=== PATIENT | female | born 1970 | race Caucasian/White ===

== ENCOUNTER 2019-03-19 12:09 | Emergency (ER) | payer OTHER, MEDICAID, SELFPAY ==
[2019-03-19 12:37] VITALS: BP 129/80; PULSE 67; RESP 16; TEMP 36.4; O2SAT 100
[2019-03-19 14:44] LABS: Add Manual Diff / Slide Review NO; Basophils Absolute Auto 0 /uL (0-100); Basophils Percent Auto 0.7 % (0-2); Eosinophils Absolute Auto 0 /uL (0-450); Eosinophils Percent Auto 0.8 % (2-4); Hematocrit 27.8 % (36-46); Hemoglobin 8.6 g/dL (12.0-16.0); Lymphocytes Absolute Auto 1600 /uL (1100-4500); Lymphocytes Percent Auto 26.1 % (25-40); Mean Corpuscular HGB Conc 30.7 % (30-36); Mean Corpuscular Hemoglobin 21.4 PG (26-34); Mean Corpuscular Volume 69.6 fL (80-100); Monocytes Absolute Auto 700 /uL (0-900); Monocytes Percent Auto 11.1 % (3-14); Neutrophils Absolute Auto 3700 /uL (1500-7000); Neutrophils Percent Auto 61.3 % (50-75); Platelet Count 287 X10^3/uL (150-400); Red Cell Distribution Width 17.9 % (11.6-14.8)
[2019-03-19 14:56] LABS: Alanine Aminotransferase 41 IU/L (9-52); Albumin 4.2 g/dL (3.5-5.0); Albumin Globulin Ratio 1.1 (1.0-2.8); Alkaline Phosphatase 127 U/L (38-126); Aspartate Aminotransferase 33 IU/L (14-36); BUN Creatinine Ratio 23.3 (6-22); Bilirubin Total 0.3 mg/dL (0.2-1.3); Blood Urea Nitrogen 14 mg/dL (7-17); Calcium 9.1 mg/dL (8.4-10.2); Carbon Dioxide 27 mmol/L (22-32); Chloride 101 mmol/L (98-107); Estimated Glomerular Filt Rate > 60.0 mL/min (>60); Globulin 3.8 g/dL (1.7-4.1); Glucose 102 mg/dL (70-100); HEMOLYSIS < 15 (0-50); Lipase 28 U/L (23-300); Potassium 3.7 mmol/L (3.4-5.1); Sodium 136 mmol/L (137-145)
[2019-03-19] MEDS: SODIUM CHLORIDE 0.9% 1,000 ML 1000 ML IV (15:00)
[2019-03-19] MEDS: ONDANSETRON 4 MG/2 ML INJ IV ×2 (15:00→16:00)
[2019-03-19 15:20] LABS: Amylase 58 U/L (30-110)
[2019-03-19 15:29] LABS: Influenza A and B by PCR Rapid Negative (Negative)
[2019-03-19 15:55] LABS: Hypochromasia 2+; Microcytosis 2+
--- NOTE | 2019-03-19 17:45 | ED_ITS ---
HPI - Nausea/Vomiting/Diarrhea <JUN Hamilton - Last Filed: 03/19/19 17:54> General Chief complaint: Nausea/Vomiting/Diarrhea Stated complaint: nausea & vomiting/fever x4 days Time Seen by Provider: 03/19/19 14:23 Source: patient Mode of arrival: ambulatory Limitations: no limitations History of Present Illness HPI Narrative: The patient is a 48-year-old female former smoker with history of GI upset who presents with a chief complaint of nausea vomiting and subjective fevers for the past 3 days. 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 She states that she feels like she has the flu. She denies any abdominal pain. She denies any diarrhea. She denies any constipation. She states that she has not taken anything to feel better at home. She complains of slight fever and chills, has not taken her temperature. Related Data Previous Rx's Medication Instructions Recorded ondansetron 4 mg PO Q6H PRN #20 tab 03/19/19 Allergies Allergy/AdvReac Type Severity Reaction Status Date / Time No Known Drug Allergies Allergy Verified 03/19/19 14:47 Review of Systems <JUN Hamilton - Last Filed: 03/19/19 17:54> Review of Systems Narrative: GENERAL: Denies chills, fatigue, malaise, fever, sweats. HEENT: Denies sinus pain, ear pain, sore throat, difficulty swallowing, dizziness. RESPIRATORY: Denies dyspnea, cough, wheezing, hemoptysis, sputum. CARDIOVASCULAR: Denies chest pain, palpitations, orthopnea, edema, GASTROINTESTINAL: See HPI : Denies dysuria, frequency, incontinence, hematuria, urinary retention. MUSCULOSKELETAL: denies weakness, joint pain, or bony pain SKIN: Denies rash, skin lesions, or other NEUROLOGIC: Denies weakness, headache, numbness, change in speech, confusion, seizures, incoordination. PSYCHIATRIC: No concerning psychosocial issues. 12 point review of systems is negative except for those stated above PFSH <JUN Hamilton - Last Filed: 03/19/19 17:54> Social History Smoking Status: Former smoker Social History Smoking Status: Former smoker Exam <JUN Hamilton - Last Filed: 03/19/19 17:54> Narrative Exam Narrative: GENERAL: This is a well-nourished, well-developed patient, no acute distress HEAD: Atraumatic. Normocephalic. No temporal or scalp tenderness. EYES: Pupils equal round and reactive. Extraocular motions intact. No scleral icterus. No injection or drainage. ENT: Nose without bleeding, purulent drainage or septal hematoma. Throat without erythema, tonsillar hypertrophy or exudate. Uvula midline. Airway patent. NECK: Trachea midline. No JVD or lymphadenopathy. Supple, nontender, no meningea l signs. CARDIOVASCULAR: Regular rate and rhythm without murmurs, gallops, or rubs. RESPIRATORY: Clear to auscultation. Breath sounds equal bilaterally. No wheezes, rales, or rhonchi. No cough. No increased respiratory effort. No accessory muscle use. GASTROINTESTINAL: Abdomen soft, non-tender, nondistended. No hepato- splenomegaly, or palpable masses. No guarding. Active bowel sounds all 4 qu adrants. EXTREMITIES: No clubbing, cyanosis, or edema. No joint tenderness, effusion, or edema noted. BACK: Nontender without deformity or crepitance. No flank tenderness. NEURO: AOx3. SKIN: No rash or erythema. Initial Vital Signs Initial Vital Signs: Vital Signs Temperature 97.5 F L 03/19/19 12:37 Pulse Rate 67 03/19/19 12:37 Respiratory Rate 16 03/19/19 12:37 Blood Pressure 129/80 03/19/19 12:37 Pulse Oximetry 100 03/19/19 12:37 <Kelsey Sheldon DO - Last Filed: 03/19/19 19:27> Initial Vital Signs Initial Vital Signs: Vital Signs Temperature 97.5 F L 03/19/19 12:37 Pulse Rate 67 03/19/19 12:37 Respiratory Rate 16 03/19/19 12:37 Blood Pressure 129/80 03/19/19 12:37 Pulse Oximetry 100 03/19/19 12:37 Course <JUN Hamilton - Last Filed: 03/19/19 17:54> Orders Ordered: ED Orders 03/19/19 14:35 Complete Blood Count AUTO DIFF Stat Comprehensive Metabolic Panel Stat Lipase Stat 03/19/19 14:58 Influenza A and B by PCR Rapid Stat 03/19/19 15:02 Amylase Stat Discontinued Medications Sodium Chloride (Normal Saline 0.9%) 1,000 mls @ 1,000 mls/hr IV BOLUS ONE Stop: 03/19/19 15:44 Last Infusion: 03/19/19 17:30 Dose: 0 mls/hr Documented by: Admin: 03/19/19 15:00 Dose: 1,000 mls/hr Documented by: TYE Ondansetron HCl (Zofran) 4 mg IV NOW ONE Stop: 03/19/19 14:46 Last Admin: 03/19/19 15:00 Dose: 4 mg Documented by: TYE Ondansetron HCl (Zofran) 4 mg IV NOW ONE Stop: 03/19/19 15:41 Last Admin: 03/19/19 16:00 Dose: 4 mg Documented by: TYE Vital Signs Vital signs: Vital Signs - 8 hr 03/19/19 12:37 03/19/19 17:59 Temperature 97.5 F L Pulse Rate 67 88 Respiratory Rate 16 20 Blood Pressure 129/80 119/74 Pulse Oximetry 100 <Kelsey Sheldon, - Last Filed: 03/19/19 19:27> Orders Ordered: ED Orders 03/19/19 14:35 Complete Blood Count AUTO DIFF Stat Comprehensive Metabolic Panel Stat Lipase Stat 03/19/19 14:58 Influenza A and B by PCR Rapid Stat 03/19/19 15:02 Amylase Stat Discontinued Medications Sodium Chloride (Normal Saline 0.9%) 1,000 mls @ 1,000 mls/hr IV BOLUS ONE Stop: 03/19/19 15:44 Last Infusion: 03/19/19 17:30 Dose: 0 mls/hr Documented by: Admin: 03/19/19 15:00 Dose: 1,000 mls/hr Documented by: TYE Ondansetron HCl (Zofran) 4 mg IV NOW ONE Stop: 03/19/19 14:46 Last Admin: 03/19/19 15:00 Dose: 4 mg Documented by: TYE Ondansetron HCl (Zofran) 4 mg IV NOW ONE Stop: 03/19/19 15:41 Last Admin: 03/19/19 16:00 Dose: 4 mg Documented by: TYE Vital Signs Vital signs: Vital Signs - 8 hr 03/19/19 12:37 03/19/19 17:59 Temperature 97.5 F L Pulse Rate 67 88 Respiratory Rate 16 20 Blood Pressure 129/80 119/74 Pulse Oximetry 100 MDM - Nausea/Vomiting/Diarrhea <ASHLEY Hamilton- - Last Filed: 03/19/19 17:54> Lab Data Result diagrams: 03/19/19 14:35 03/19/19 14:35 Labs: Lab Results 03/19/19 03/19/19 03/19/19 Range/Units 14:35 14:35 14:58 WBC 6.0 (4.5-11.0) X10^3/uL RBC 4.00 (4.0-5.2) X10^6/uL Hgb 8.6 L (12.0-16.0) g/dL Hct 27.8 L (36-46) % MCV 69.6 L (80-100) fL MCH 21.4 L (26-34) PG MCHC 30.7 (30-36) % RDW 17.9 H (11.6-14.8) % Plt Count 287 (150-400) X10^3/uL Neut % (Auto) 61.3 (50-75) % Lymph % (Auto) 26.1 (25-40) % [place] % (Auto) 11.1 (3-14) % Eos % (Auto) 0.8 L (2-4) % Baso % (Auto) 0.7 (0-2) % Neut # (Auto) 3700 (9262-6853) /uL Lymph # (Auto) 1600 (4266-1571) /uL [place] # (Auto) 700 (0-900) /uL Eos # (Auto) 0 (0-450) /uL Baso # (Auto) 0 (0-100) /uL RBC Morphology See below Hypochromasia 2+ H Microcytosis 2+ H Sodium 136 L (137-145) mmol/L Potassium 3.7 (3.4-5.1) mmol/L Chloride 101 (98-107) mmol/L Carbon Dioxide 27 (22-32) mmol/L BUN 14 (7-17) mg/dL Creatinine 0.60 (0.52-1.04) mg/dL Estimated GFR > 60.0 (>60) mL/min BUN/Creatinine Ratio 23.3 H (6-22) Glucose 102 H (70-100) mg/dL Calcium 9.1 (8.4-10.2) mg/dL Total Bilirubin 0.3 (0.2-1.3) mg/dL AST 33 (14-36) IU/L ALT 41 (9-52) IU/L Alkaline Phosphatase 127 H (38-126) U/L Total Protein 8.0 (6.3-8.2) g/dL Albumin 4.2 (3.5-5.0) g/dL Globulin 3.8 (1.7-4.1) g/dL Albumin/Globulin Ratio 1.1 (1.0-2.8) Amylase (30-110) U/L Lipase 28 (23-300) U/L Influenza A & B (PCR) Negative (Negative) 03/19/19 Range/Units 15:02 WBC (4.5-11.0) X10^3/uL RBC (4.0-5.2) X10^6/uL Hgb (12.0-16.0) g/dL Hct (36-46) % MCV (80-100) fL MCH (26-34) PG MCHC (30-36) % RDW (11.6-14.8) % Plt Count (150-400) X10^3/uL Neut % (Auto) (50-75) % Lymph % (Auto) (25-40) % [place] % (Auto) (3-14) % Eos % (Auto) (2-4) % Baso % (Auto) (0-2) % Neut # (Auto) (4492-3642) /uL Lymph # (Auto) (5176-5734) /uL [place] # (Auto) (0-900) /uL Eos # (Auto) (0-450) /uL Baso # (Auto) (0-100) /uL RBC Morphology Hypochromasia Microcytosis Sodium (137-145) mmol/L Potassium (3.4-5.1) mmol/L Chloride (98-107) mmol/L Carbon Dioxide (22-32) mmol/L BUN (7-17) mg/dL Creatinine (0.52-1.04) mg/dL Estimated GFR (>60) mL/min BUN/Creatinine Ratio (6-22) Glucose (70-100) mg/dL Calcium (8.4-10.2) mg/dL Total Bilirubin (0.2-1.3) mg/dL AST (14-36) IU/L ALT (9-52) IU/L Alkaline Phosphatase (38-126) U/L Total Protein (6.3-8.2) g/dL Albumin (3.5-5.0) g/dL Globulin (1.7-4.1) g/dL Albumin/Globulin Ratio (1.0-2.8) Amylase 58 (30-110) U/L Lipase (23-300) U/L Influenza A & B (PCR) (Negative) Point of Care Testing Test Results Negative Urine Dip Bedside Urine Glucose Negative Bedside Urine Bilirubin - Negative Bedside Urine Ketone - Negative Urine Specific [place] 1.015 Bedside Urine Occult Blood - Negative Bedside Urine pH 6.0 Bedside Urine Protein - Negative Bedside Urine Urobilinogen - Negative Bedside Urine Nitrite - Negative Bedside Urine Leukocytes - Negative Esterase MDM Narrative Medical decision making narrative: The patient is a 48-year-old female who presents with a chief complaint of nausea and vomiting. Her lab work is grossly within normal limits for her given her lab work in August. Her urine shows no signs of infection or . She tolerated p.o. trial after receiving a L of IV fluid and Zofran. I discussed at length the importance of following up with her PCP as well as come back to the ER for any acute concerns such as inability keep down fluids. Patient has no questions or concerns upon discharge. States she will come back if she needs to and follow up with PCP. S he was given a prescription of Zofran. Of note the patient did not vomit throughout her stay in the emergency department. <Kelsey Sheldon, DO - Last Filed: 03/19/19 19:27> Lab Data Labs: Lab Results 03/19/19 03/19/19 03/19/19 Range/Units 14:35 14:35 14:58 WBC 6.0 (4.5-11.0) X10^3/uL RBC 4.00 (4.0-5.2) X10^6/uL Hgb 8.6 L (12.0-16.0) g/dL Hct 27.8 L (36-46) % MCV 69.6 L (80-100) fL MCH 21.4 L (26-34) PG MCHC 30.7 (30-36) % RDW 17.9 H (11.6-14.8) % Plt Count 287 (150-400) X10^3/uL Neut % (Auto) 61.3 (50-75) % Lymph % (Auto) 26.1 (25-40) % [place] % (Auto) 11.1 (3-14) % Eos % (Auto) 0.8 L (2-4) % Baso % (Auto) 0.7 (0-2) % Neut # (Auto) 3700 (4243-5013) /uL Lymph # (Auto) 1600 (1286-3152) /uL [place] # (Auto) 700 (0-900) /uL Eos # (Auto) 0 (0-450) /uL Baso # (Auto) 0 (0-100) /uL RBC Morphology See below Hypochromasia 2+ H Microcytosis 2+ H Sodium 136 L (137-145) mmol/L Potassium 3.7 (3.4-5.1) mmol/L Chloride 101 (98-107) mmol/L Carbon Dioxide 27 (22-32) mmol/L BUN 14 (7-17) mg/dL Creatinine 0.60 (0.52-1.04) mg/dL Estimated GFR > 60.0 (>60) mL/min BUN/Creatinine Ratio 23.3 H (6-22) Glucose 102 H (70-100) mg/dL Calcium 9.1 (8.4-10.2) mg/dL Total Bilirubin 0.3 (0.2-1.3) mg/dL AST 33 (14-36) IU/L ALT 41 (9-52) IU/L Alkaline Phosphatase 127 H (38-126) U/L Total Protein 8.0 (6.3-8.2) g/dL Albumin 4.2 (3.5-5.0) g/dL Globulin 3.8 (1.7-4.1) g/dL Albumin/Globulin Ratio 1.1 (1.0-2.8) Amylase (30-110) U/L Lipase 28 (23-300) U/L Influenza A & B (PCR) Negative (Negative) 03/19/19 Range/Units 15:02 WBC (4.5-11.0) X10^3/uL RBC (4.0-5.2) X10^6/uL Hgb (12.0-16.0) g/dL Hct (36-46) % MCV (80-100) fL MCH (26-34) PG MCHC (30-36) % RDW (11.6-14.8) % Plt Count (150-400) X10^3/uL Neut % (Auto) (50-75) % Lymph % (Auto) (25-40) % [place] % (Auto) (3-14) % Eos % (Auto) (2-4) % Baso % (Auto) (0-2) % Neut # (Auto) (7450-2423) /uL Lymph # (Auto) (1118-8847) /uL [place] # (Auto) (0-900) /uL Eos # (Auto) (0-450) /uL Baso # (Auto) (0-100) /uL RBC Morphology Hypochromasia Microcytosis Sodium (137-145) mmol/L Potassium (3.4-5.1) mmol/L Chloride (98-107) mmol/L Carbon Dioxide (22-32) mmol/L BUN (7-17) mg/dL Creatinine (0.52-1.04) mg/dL Estimated GFR (>60) mL/min BUN/Creatinine Ratio (6-22) Glucose (70-100) mg/dL Calcium (8.4-10.2) mg/dL Total Bilirubin (0.2-1.3) mg/dL AST (14-36) IU/L ALT (9-52) IU/L Alkaline Phosphatase (38-126) U/L Total Protein (6.3-8.2) g/dL Albumin (3.5-5.0) g/dL Globulin (1.7-4.1) g/dL Albumin/Globulin Ratio (1.0-2.8) Amylase 58 (30-110) U/L Lipase (23-300) U/L Influenza A & B (PCR) (Negative) Point of Care Testing Test Results Negative Urine Dip Bedside Urine Glucose Negative Bedside Urine Bilirubin - Negative Bedside Urine Ketone - Negative Urine Specific [place] 1.015 Bedside Urine Occult Blood - Negative Bedside Urine pH 6.0 Bedside Urine Protein - Negative Bedside Urine Urobilinogen - Negative Bedside Urine Nitrite - Negative Bedside Urine Leukocytes - Negative Esterase Discharge Plan Departure Patient Disposition: Home Clinical Impression: Nausea & vomiting Qualifiers: Vomiting type: unspecified Vomiting Intractability: non-intractable Qualified Code(s): R11.2 - Nausea with vomiting, unspecified Discharge Date/Time: 03/19/19 17:59 Instructions: DI for Nausea -- Adult, DI for Vomiting -- Adult Activity Restrictions/Additional Instructions: Thank you for trusting us with your care today. I have given you a prescription of Zofran for nausea Please follow up with primary care provider. Please come back to the emergency department for any acute concerns such as fever with abdominal pain, inability keep down fluids etc Prescriptions: New ondansetron 4 mg tablet,disintegrating 4 mg PO Q6H PRN (Reason: nausea and vomiting) Qty: 20 RF: 0 Referrals: [facility] [Outside]
[2019-03-19 17:59] VITALS: BP 119/74; PULSE 88; RESP 20
== END 2019-03-19 17:59 | disposition home or self-care (01) ==
PROVIDERS: Emergency Provider Nurse Practitioner Family
DX: R11.2 Nausea with vomiting, unspecified (principal)
CPT/HCPCS: 80053; 81003; 81025; 82150; 83690; 85025; 87400; 87502; 96361; 96374; 96376; 99283; 99284; J2405